=== PATIENT | female | born 1955 | race Caucasian/White ===

== ENCOUNTER 2017-10-09 11:02 | Outpatient (CLI) | payer BC | END 2017-10-09 11:03 | disposition home or self-care (01) | LOC: BICMAMMO 11:02 | PROVIDERS: ATTEND Internal Medicine | DX: M81.0 Age-related osteoporosis without current pathological fracture (principal); M85.80 Other specified disorders of bone density and structure, unspecified site; Z13.820 Encounter for screening for osteoporosis | CPT/HCPCS: 77080 ==

== ENCOUNTER 2020-01-20 08:21 | Outpatient (CLI) | payer MEDICARE, BC ==
--- NOTE | 2020-01-20 08:44 | BD ---
DEXA BONE DENSITY STUDY History: screening Comparison: DEXA exam 2018 Findings: FINDINGS: L1--bone mineral density 0.710 g/sq cm; T score -2.5 L2--bone mineral density 0.813 g/sq cm; T score -2.0 L3--bone mineral density 0.784 g/sq cm; T score -2.7 L4--bone mineral density 0.772 g/sq cm; T score -0.6 Total L1-L4--bone mineral density -2.5 g/sq cm; T score -0.6 Left femoral neck--bone mineral density0.589; T score -2.3 Total proximal left femur--bone mineral density 0.652; T score -2.4 WHO classification: Osteoporosis IMPRESSION: Osteoporosis with elevated fracture risk.
== END 2020-01-20 08:22 | disposition home or self-care (01) ==
LOC: BICMAMMO 08:21
PROVIDERS: ATTEND Internal Medicine Endocrinology, Diabetes & Metabolism
DX: M85.80 Other specified disorders of bone density and structure, unspecified site (principal); M81.0 Age-related osteoporosis without current pathological fracture
CPT/HCPCS: 77080

== ENCOUNTER 2021-01-16 09:27 | Outpatient (CLI) | payer MEDICARE, BC | END 2021-01-16 09:28 | disposition home or self-care (01) | LOC: BICMAMMO 09:27 | PROVIDERS: ATTEND Internal Medicine Endocrinology, Diabetes & Metabolism | DX: M81.0 Age-related osteoporosis without current pathological fracture (principal) | CPT/HCPCS: 77080 ==

== ENCOUNTER 2022-02-19 09:09 | Outpatient (CLI) | payer MEDICARE, BC | END 2022-02-19 09:10 | disposition home or self-care (01) | LOC: BICMAMMO 09:09 | PROVIDERS: ATTEND Internal Medicine Endocrinology, Diabetes & Metabolism | DX: M81.0 Age-related osteoporosis without current pathological fracture (principal) | CPT/HCPCS: 77080 ==